=== PATIENT | female | born 1995 | race African-American/Black ===

== ENCOUNTER 2017-08-05 17:00 | Inpatient (IN) | payer MEDICAID | END 2017-08-07 16:16 | disposition home or self-care (01) | DRG 639 | LOC: D.ER 17:00 → D.WS 19:33 → D.MS 08-06 19:00 | PROVIDERS: ADMIT Family Medicine | DX: E10.10 Type 1 diabetes mellitus with ketoacidosis without coma (principal); A60.00 Herpesviral infection of urogenital system, unspecified; E83.42 Hypomagnesemia ==

== ENCOUNTER 2018-06-27 12:26 | Emergency (ER) | payer MEDICAID ==
[~2018-06-27] VITALS: Ht 167.6 cm; Wt 61.2 kg
[~2018-06-27 12:26] MED LIST: LANTUS INSULIN10 ML SC; LANTUS SOL100 UNIT/1 SC; LEXAPRO10 MG; NOVOLOG100 U/M1; STRATTERA80 MG PO; ZOVIRAX400 MG PO
[2018-06-27 12:30] VITALS: Ht 167.6 cm; Wt 61.2 kg
[2018-06-27 13:23] LABS: HCG URINE NEGATIVE (NEGATIVE)
[2018-06-27] MEDS ORDERED: CYCLOBENZAPRINE10 MG PO (14:19)
[2018-06-27 14:34] VITALS: BP 109/65
== END 2018-06-27 14:35 | disposition home or self-care (01) ==
LOC: D.ER 12:26
PROVIDERS: Nurse Practitioner Family
DX: S16.1XXA Strain of muscle, fascia and tendon at neck level, initial encounter (principal); V43.52XA Car driver injured in collision with other type car in traffic accident, initial encounter; Y93.89 Activity, other specified; Y92.410 Unspecified street and highway as the place of occurrence of the external cause; S39.012A Strain of muscle, fascia and tendon of lower back, initial encounter; E11.9 Type 2 diabetes mellitus without complications; E10.9 Type 1 diabetes mellitus without complications

== ENCOUNTER 2021-04-25 18:42 | Emergency (ER) | payer OTHER ==
[~2021-04-25] VITALS: Ht 167.6 cm; Wt 63.5 kg
[~2021-04-25 18:42] MED LIST changes: +CYCLOBENZAPRINE10 MG PO
[2021-04-25 19:18] VITALS: Ht 167.6 cm; Wt 63.5 kg
[2021-04-25 20:07] LABS: BASOPHILS 0.5 % (0-2); EOSINOPHILS 0.4 % (0-7); HEMATOCRIT 42.4 % (36.0-48.0); HEMOGLOBIN 14.5 g/dL (12-16); IMMATURE GRANULOCYTES 0.2 % (0-5); LYMPHOCYTE ABS# 1.58 10x3/uL (1.18-3.74); LYMPHOCYTES 28.7 % (15-50); MCH 29.1 pg (26.0-34.0); MCHC 34.2 g/dL (31.0-37.0); MEAN PLATELET VOLUME 10.4 fL (7.4-10.4); MONOCYTES 4.2 % (2-11); NEUTROPHIL ABS# 3.64 10x3/uL (1.56-6.13); PLATELET COUNT 250 10x3/uL (130-400); RBC 4.99 10x6/uL (4.00-5.40); RDW 12.7 % (11.5-14.5); WBC 5.5 10x3/uL (4.8-10.8)
[2021-04-25 20:13] LABS: CALC OSMOLALITY 280 mosm/kg (275-300); CALCIUM 9.5 mg/dL (8.5-10.1); CARBON DIOXIDE 24.6 mmol/L (21.0-32.0); CHLORIDE - SERUM 96 mmol/L (98-107); CREATININE - SERUM 0.6 mg/dL (0.6-1.3); POTASSIUM - SERUM 4.3 mmol/L (3.5-5.1); SODIUM 132 mmol/L (136-145); UREA NITROGEN 16 mg/dL (7-18); eGFR NON AFRICAN AMERICAN > 90 mL/min (90-120)
[2021-04-25 20:18] LABS: ALKALINE PHOSPHATASE 112 U/L (30-120); ALT (SGPT) 41 U/L (10-68); BILIRUBIN - TOTAL 0.21 mg/dL (0.2-1.3); LIPASE 65 U/L (73-393); PROTEIN - SERUM 8.5 g/dL (6.4-8.2)
[2021-04-25 20:26] LABS: GLUCOSE 377 mg/dL (74-106)
[2021-04-25 21:18] LABS: BILIRUBIN NEGATIVE (NEGATIVE); HCG URINE NEGATIVE (NEGATIVE); KETONE NEGATIVE (NEGATIVE); NITRITE NEGATIVE (NEGATIVE); UROBILINOGEN NORMAL mg/dL (< 2)
[2021-04-25] MEDS ORDERED: BENTYL 20 MG TA20 MG PO (22:19)
[2021-04-25] MEDS ORDERED: ZOFRAN ODT4 MG/UDTAB PO (22:19)
[2021-04-26 00:16] VITALS: BP 103/57
== END 2021-04-26 00:12 | disposition home or self-care (01) ==
LOC: D.ER 18:42
PROVIDERS: Family Medicine
DX: R10.30 Lower abdominal pain, unspecified (principal); K64.8 Other hemorrhoids; E10.65 Type 1 diabetes mellitus with hyperglycemia